=== PATIENT | female | born 1935 | race Caucasian/White ===

== ENCOUNTER 2022-11-15 14:57 | Outpatient (REF) | payer MEDICARE, OTHER, SELFPAY ==
[2022-11-15 16:15] LABS: Anion Gap 15 (12-20); Blood Urea Nitrogen 24 mg/dL (9-16); Calcium 10.2 mg/dL (8.4-10.2); Carbon Dioxide 24 mmol/L (22-29); Chloride 108 mmol/L (96-108); Estimated Glomerular Filt Rate > 60; Glucose Random 84 mg/dL (60-115); Potassium 4.3 mmol/L (3.3-5.1); Sodium 143 mmol/L (135-145)
[2022-11-15 16:46] LABS: Folate 19.3 ng/mL (> or = 4.0); T4 Thyroxine 7.4 ug/dL (4.5-12.0); Vitamin B12 367 pg/mL (200-900)
== END 2022-11-15 14:58 | disposition home or self-care (01) ==
LOC: HO.LAB 14:57
PROVIDERS: Visit Provider Psychiatry & Neurology Neurology
DX: G31.84 Mild cognitive impairment of uncertain or unknown etiology (principal)
CPT/HCPCS: 36415; 80048; 82607; 82746; 84436; 84443

== ENCOUNTER 2022-12-09 12:28 | Outpatient (REF) | payer MEDICARE, OTHER, SELFPAY ==
--- NOTE | ~2022-12-09 | CT_ITS ---
EXAMINATION: CT HEAD WITHOUT CONTRAST CLINICAL INFORMATION: Mild cognitive impairment COMPARISON: None available. TECHNIQUE: Contiguous axial imaging was performed from the skull base to vertex without intravenous administration of contrast. This CT examination was performed using dose optimization techniques as appropriate, variously including the following: *Automated exposure control *Adjustment of mA and/or kV according to patient size (this includes techniques or standardized protocols for targeted exams where dose is matched to indication/reason for exam; i.e. extremities or head) *Use of iterative reconstruction technique DLP: 625 mGy-cm FINDINGS: There is no acute intra-axial, extra-axial bleed, masses or midline shift. There is no acute infarction evolution. There is no edema. There is moderate diffuse periventrical hypodensities in both cerebral hemispheres without mass effect suggestive of chronic small vessel ischemic changes. No abnormality seen in the posterior fossa. Bone windows reveal no calvarial abnormality. There is no scalp soft tissue abnormality. Bilateral paranasal sinuses are well-aerated with complete opacification of right sphenoid sinus and minimal mucoperiosteal thickening, right middle ethmoid sinus. The mastoid sinuses are clear. CT/CT head/brain wo IV con IMPRESSION: 1. No acute intracranial process seen. 2. 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
== END 2022-12-09 12:29 | disposition home or self-care (01) ==
LOC: HO.CT 12:28
PROVIDERS: Visit Provider Psychiatry & Neurology Neurology
DX: G31.84 Mild cognitive impairment of uncertain or unknown etiology (principal)
CPT/HCPCS: 70450

== ENCOUNTER 2025-05-08 14:14 | Outpatient (AMB) | payer MEDICARE, OTHER, SELFPAY ==
--- NOTE | 2025-05-08 14:18 | MHC.OFFVIS ---
Intake Visit Reasons: f/u Accompanied by: Family/Other Allergies sulfur dioxide Allergy (Unknown, Verified 05/08/25 14:23) Unknown Medication List - Last Reconciled 05/08/25 by Elda Cisneros CNP aspirin 81 mg PO DAILY atorvastatin (Lipitor) 10 mg PO QPM candesartan 16 mg PO BID donepezil 10 mg PO DAILY melatonin 10 mg PO BEDTIME PRN metformin 500 mg PO DAILY nifedipine ER 90 mg PO DAILY vibegron (Gemtesa) 75 mg PO DAILY HPI Comments Details: She was doing okay. Memory was stable. She was functioning well at her place of residence and was participating in few group activities. Walking with walker, no falls. Mood was okay, but could be down at times when thinking of her who passed earlier this year. Sleep was not so good. Her daughter had concerns about her memory. The patient herself did not feel that that there was anything going out outside of her age that she was sometimes a bit forgetful about things. She does not feel that her quality of life had been affected in any way. [facility] Medical History (Updated 05/08/25 @ 14:22 by Elda Cisneros CNP) Diabetes mellitus Hypertension MCI (mild cognitive impairment) Review of Systems Const Denies chills, Denies daytime sleepiness, Reports difficulty sleeping, Denies fatigue, Denies fever(s), Denies frequent falls, Denies headache(s), Denies increased appetite, Denies poor appetite, Denies snoring, Denies weakness, Denies weight gain and Denies weight loss Eyes Denies loss of vision ENT Denies vertigo, Denies dizziness, Denies headache(s) and Denies neck pain Card Denies chest pain at rest, Denies chest pain with activity, Denies syncope, Denies leg edema, Denies palpitations, Denies dyspnea and Denies dyspnea on exertion Resp Denies cough, Denies dyspnea, Denies dyspnea on exertion and Denies snoring GI Denies abdominal pain, Denies constipation, Denies heartburn, Denies diarrhea and Denies nausea Denies urinary frequency, Denies urinary incontinence and Denies urinary urgency Musc Denies abnormal gait, Denies back pain, Denies myalgias, Denies arthralgias, Denies neck pain, Denies numbness and Denies tingling Neuro Denies abnormal gait, Denies vertigo, Denies dizziness, Denies syncope, Denies frequent falls, Denies headache(s), Denies lack of coordination, Denies loss of vision, Reports memory loss, Denies numbness, Denies Other visual disturbances, Denies restless legs, Denies seizure-like activity, Denies tingling, Denies paresthesias, Denies tremor(s) and Denies weakness Psych Denies anxiety, Denies depression, Denies auditory hallucinations, Reports memory loss and Denies visual hallucinations Endo Denies fatigue and Denies palpitations Physical Exam Const Other: General Appearance:? normal, in no acute distress. Heart:? S1, S2 normal, no murmurs. Lungs:? clear anteriorly and posteriorly. Musculoskeletal:? normal. Extremities:? no edema. Psych:? alert, as below. Neuro Other: Abnormal Neurological Findings:?MMSE 24/30. Very hard of hearing. Walking with walker.? Mental Status: alert, as below. Cranial Nerves: Pupils are equal, round, and reactive to light. External ocular muscles are intact. Visual wiseman are full, no ptosis. Face is symmetrical, no facial weakness or droop. Facial sensations are normal. Tongue protrudes in midline. Palate elevates symmetrically. Shoulder shrugging is normal Motor Examination: Normal muscle tone, bulk and strength. No atrophy or fasciculations. No drift of the extended upper extremities. DTR 2+. Plantars are flexor. Sensory Exam: Normal light touch, temperature, pinprick, vibration, and joint-position sensations. Rhomberg sign is absent. Coordination: No ataxia. No titubation. Gait Exam: With walker. Cerebellar Signs: [id number] is okay. Extrapyramidal System: No tremor, rigidity with normal facial expressions. No bradykinesia. No bradyphrenia. Normal arm swing and posture. No propulsion or retropulsion. Speech: Normal. MMSE Level of Consciousness: Alert. Orientation: Knows correct year, month, day, and season. Does not know date. Knows correct city, county and state. Knows correct location and floor. Registration: Able to register 3 objects. Attention: Serial 7's performed accurately to 93. Recall: Able to recall 3 out of 3 objects. Language: Normal spontaneous speech, fluency, repetition, naming, comprehension, reading, and writing. Total Score: 25/30. Results Reviewed Results Reviewed: 2022 EEG- WNL CT brain negative Labs normal. Assessment & Plan Assessment & Plan (1) MCI (mild cognitive impairment): Code(s): G31.84 - Mild cognitive impairment of uncertain or unknown etiology Category: Medical Plan: Continue donepezil 10mg 1 tablet at bedtime. Stay physically and socially active, use walker. Coding Level of Care Code Est Pt Level 4 (49543) Diagnoses MCI (mild cognitive impairment) G31.84
--- OUTSIDE RECORDS SUMMARY | 2025-05-08 15:14 | XMS_ITS ---
Author Name [facility] Organization Unknown History of Medication Use Medication Directions Dispensed Refills Start Date End Date Stat us acetaminophen (TYLENOL) 500 MG tablet Take 1 tablet (500 mg total) by mouth 4 times daily (every 6 hours) as needed for mild pain. active albuterol (PROVENTIL HFA; VENTOLIN HFA) 108 (90 Base) MCG/ACT inhaler Inhale 2 puffs 4 times daily (every 6 hours) as needed for wheezing. active atorvastatin (LIPITOR) 10 MG tablet Take 1 tablet (10 mg total) by mouth daily. active cetirizine (ZyrTEC) 10 MG tablet Take 1 tablet (10 mg total) by mouth daily. active metFORMIN (GLUCOPHAGE) 500 MG tablet Take 1 tablet (500 mg total) by mouth 2 (two) times a day with meals. 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
--- OUTSIDE RECORDS SUMMARY | 2025-05-08 15:14 | XMS_ITS | Clinical Summary ---
Author Organization [facility] Address [address] [place] [address] Care Team Providers Care Sales And Marketing Agent Name Role Phone Pcp, No Primary Care Provider Unavailabl e Allergies Active Allergy Reactions Criticality Noted Date Comments Metoprolol Delirium/Confusion/Psychosis Low 024 Sulfa Antibiotics Diarrhea Low 01/26/2024 Medications Aspirin 81 MG Cap Take 81 mg by mouth. 05/20/2023 Active candesartan (ATACAND) 16 MG tablet Take 1 tablet (16 mg total) by mouth. 05/20/2023 Active Gemtesa 75 MG tablet Take 1 tablet (75 mg total) by mouth daily. 12/09/2023 Active calcium carbonate-vitam in D (CALTRATE+D) 600 mg-10 mcg tablet Take 1 tablet by mouth every morning with breakfast. Active Multiple Vitamins-Minera ls (CENTRUM SILVER PO) Take by mouth. Active metFORMIN (GLUCOPHAGE) 500 MG tablet Take 1 tablet (500 mg total) by mouth 2 (two) times a day with meals. Active NIFEdipine (PROCARDIA XL) 90 MG 24 hr tablet Take 1 tablet (90 mg total) by mouth daily. Active acetaminophen (TYLENOL) 500 MG tablet Take 1 tablet (500 mg total) by mouth 4 times daily (every 6 hours) as needed for mild pain. Active fluticasone-morgan meterol 100-50 mcg/inh diskus inhaler Inhale 1 puff 2 (two) times a day. Active albuterol (PROVENTIL HFA; VENTOLIN HFA) 108 (90 Base) MCG/ACT inhaler Inhale 2 puffs 4 times daily (every 6 hours) as needed for wheezing. Active atorvastatin (LIPITOR) 10 MG tablet Take 1 tablet (10 mg total) by mouth daily. Active donepezil (ARICEPT) 5 MG tablet Take 1 tablet (5 mg total) by mouth nightly. Active cetirizine (ZyrTEC) 10 MG tablet Take 1 tablet (10 mg total) by mouth daily. Active melatonin 10 MG Tab tablet Take 10 mg by mouth nightly. Active Family History Medical History Relation Name Comments No Known Problems Daughter Heart disease Father Diabetes Mother No Known Problems Sister No Known Problems Son 1 No Known Problems Son 2 Relation Name Status Comments Daughter Alive Father Mother Sister Son 1 Alive Son 2 Alive Social History Tobacco Use Types Packs/Day Years Used Date Smoking Tobacco: Never Smokeless Tobacco: Never Alcohol Use Standard Drinks/Week Comments Yes 0 (1 standard drink = 0.6 oz pur e alcohol) socially Comments Unknown Sex and Gender Information Value Date Recorded Sex Assigned at Female 07/25/2023 9:52 AM EST Legal Sex Female 9:48 AM EST Gender Identity Female 07/25/2023 9:52 AM EST Sexual Orientation Choose not to disclose 2022 9:52 AM EST Last Filed Vital Signs Vital Sign Reading Time Taken Comments Blood Pressure 145/77 01/26/2024 11:00 AM EDT Pulse 89 01/26/2024 11:00 AM EDT Temperature 36.7 C (98 F) 01/26/2024 11:00 AM EDT Respiratory Rate - - Oxygen Saturation - - Inhaled Oxygen Concentration - - Weight 64.1 kg (141 lb 6.4 oz) 01/26/2024 11:00 AM EDT Height 155 cm (5' 1.02 ) 01/26/2024 11:00 AM EDT Body Mass Index 26.7 01/26/2024 11:00 AM EDT Plan of Treatment Health Maintenance Due Date Last Done Comments DTaP/Tdap/Td Vaccines (1 - Tdap) 1956 Pneumococcal Vaccines 50+ (1 of 1 - PCV) 1987 Zoster (Shingles) Vaccine (1 of 2) 1987 DXA Bone Density (Females,Ages 65 and older) 2002 RSV Vaccine 60 years and older and Patients (1 - 1-dose 75+ series) 2012 COVID-19 Vaccine (2023-2 5 season) 2024 01/28/2022, 10/13/2020, 09/22/2020 Influenza Vaccine 04/12/2025 Hepatitis B Vaccines Aged Out No long er eligible based on patient's age to complete this topic Insurance FOR [employer] MEDICARE PART A & B Care Teams Sales And Marketing Agent Relationship Specialty Start Date End Date Pcp, No PCP - General General Medicine 07/27/23
--- OUTSIDE RECORDS SUMMARY | 2025-05-08 15:14 | XMS_ITS | Encounter Summary ---
Author Organization [facility] Address [address] [place] [address] Care Team Providers Care Analysis Reporting Developer Name Role Phone Aisha Cross MD Primary Care Provider + Encounter Details Date Type Department Care Team (Late st Contact Info) Description 01/09/2025 Lab Requisition [facility] - Main Lab [address] [facility] [place] [address] Omayra Martin PA [address] [place], [place] [id number] Hyperlipidemia, unspecified; Type 2 diabetes mellitus without complications (CMS/HCC V24, CMS/HCC V28); Vitamin D deficiency, unspecified Social History Tobacco Use Types Packs/Day Years Used Date Smoking Tobacco: Never Assessed Comments Unknown Sex and Gender Information Value Date Recorded Sex Assigned at Not on file Legal Sex Female 9:55 PM EST Gender Identity Not on file Sexual Orientation Not on file documented as of this encounter Plan of Treatment Not on file documented as of this encounter Procedures Procedure Name Priority Date/Time Associated Diagnosis Comments LIPID PANEL WITH REFLEX TO DIRECT LDL Routine 01/09/2025 7:15 AM EDT Hyperlipidemia, unspecified Type 2 diabetes mellitus without complications (CMS/HCC V24, CMS/HCC V28) Vitamin D deficiency, unspecified CBC WITH AUTO DIFFERENTIAL Routine 01/09/2025 7:15 AM EDT Hyperlipidemia, unspecified Type 2 diabetes mellitus without complications (CMS/HCC V24, CMS/HCC V28) Vitamin D deficiency, unspecified VITAMIN D 25 HYDROXY Routine 01/09/2025 7:15 AM EDT Hyperlipidemia, unspecified Type 2 diabetes mellitus without complications (CMS/HCC V24, CMS/HCC V28) Vitamin D deficiency, unspecified CBC AND DIFFERENTIAL Routine 01/09/2025 7:15 AM EDT Hyperlipidemia, unspecified Type 2 diabetes mellitus without complications (CMS/HCC V24, CMS/HCC V28) Vitamin D deficiency, unspecified THYROID STIMULATING HORMONE Routine 01/09/2025 7:15 AM EDT Hyperlipidemia, unspecified Type 2 diabetes mellitus without complications (CMS/HCC V24, CMS/HCC V28) Vitamin D deficiency, unspecified MAGNESIUM Routine 01/09/2025 7:15 AM EDT Hyperlipidemia, unspecified Type 2 diabetes mellitus without complications (CMS/HCC V24, CMS/HCC V28) Vitamin D deficiency, unspecified LIPASE Routine 01/09/2025 7:15 AM EDT Hyperlipidemia, unspecified Type 2 diabetes mellitus without complications (CMS/HCC V24, CMS/HCC V28) Vitamin D deficiency, unspecified HEMOGLOBIN A1C Routine 01/09/2025 7:15 AM EDT Hyperlipidemia, unspecified Type 2 diabetes mellitus without complications (CMS/HCC V24, CMS/HCC V28) Vitamin D deficiency, unspecified VITAMIN B12 Routine 01/09/2025 7:15 AM EDT Hyperlipidemia, unspecified Type 2 diabetes mellitus without complications (CMS/HCC V24, CMS/HCC V28) Vitamin D deficiency, unspecified COMPREHENSIVE METABOLIC PANEL Routine 01/09/2025 7:15 AM EDT Hyperlipidemia, unspecified Type 2 diabetes mellitus without complications (CMS/HCC V24, CMS/HCC V28) Vitamin D deficiency, unspecified documented in this encounter Results * CBC auto differential (01/09/2025 7:15 AM EDT) [facility] Signature WBC 5.7 4.8 - 10.8 K/[facility] LAB HEMETOLOGY METHOD 01/09/2025 9:20 AM EDT [facility] RBC 4.30 3.80 - 4.80 M/mcL LAB HEMETOLOGY METHOD 01/09/2025 9:20 AM [facility] LAB Hemoglobin 12.6 11.5 - 16.0 g/dL LAB HEMETOLOGY METHOD 01/09/2025 9:20 AM [facility] LAB Hematocrit 38.6 35.0 - 47.0 % LAB HEMETOLOGY METHOD 01/09/2025 9:20 AM [facility] LAB MCV 89.1 79.0 - 98.0 FL LAB HEMETOLOGY METHOD 01/09/2025 9:20 AM [facility] LAB MCH 29.1 27.0 - 32.0 pcg LAB HEMETOLOGY METHOD 01/09/2025 9:20 AM [facility] LAB MCHC 32.6 32.0 - 37.0 g/dL LAB HEMETOLOGY METHOD 01/09/2025 9:20 AM [facility] LAB RDW 14.1 11.0 - 15.0 % LAB HEMETOLOGY METHOD 01/09/2025 9:20 AM [facility] LAB Platelets 387 130 - 400 K/mcL LAB HEMETOLOGY METHOD 01/09/2025 9:20 AM [facility] LAB MPV 10.7 7.0 - 11.0 FL LAB HEMETOLOGY METHOD 01/09/2025 9:20 AM [facility] LAB NRBC 0.0 <1.0 % LAB HEMETOLOGY METHOD 01/09/2025 9:20 AM [facility] LAB NRBC Absolute 0.00 <0.10 K/mcL LAB HEMETOLOGY METHOD 01/09/2025 9:20 AM [facility] LAB Neutrophils Relative 64.9 % LAB HEMETOLOGY METHOD 01/09/2025 9:20 AM [facility] LAB Lymphocytes Relative 18.4 % LAB HEMETOLOGY METHOD 01/09/2025 9:20 AM EDT [facility] Monocytes Relative 9.5 % LAB HEMETOLOGY METHOD 01/09/2025 9:20 AM T [facility] Eosinophils Relative 6.5 % LAB HEMETOLOGY METHOD 01/09/2025 9:20 AM [facility] LAB Basophils Relative 0.5 % LAB HEMETOLOGY METHOD 01/09/2025 9:20 AM [facility] LAB Immature Granulocytes Relative 0.2 % LAB HEMETOLOGY METHOD 01/09/2025 9:20 AM T [facility] Neutrophils Absolute 3.70 1.50 - 7.00 K/mcL LAB HEMETOLOGY METHOD 01/09/2025 9:20 AM [facility] LAB Lymphocytes Absolute 1.05 1.00 - 5.00 K/mcL LAB HEMETOLOGY METHOD 01/09/2025 9:20 AM [facility] LAB Monocytes Absolute 0.54 0.20 - 1.00 K/mcL LAB HEMETOLOGY METHOD 01/09/2025 9:20 AM [facility] LAB Eosinophils Absolute 0.37 0.00 - 0.50 K/mcL LAB HEMETOLOGY METHOD 01/09/2025 9:20 AM [facility] Basophils Absolute 0.03 0.00 - 0.20 K/mcL LAB HEMETOLOGY METHOD 01/09/2025 9:20 AM [facility] Immature Granulocytes Absolute 0.01 0.00 - 0.03 K/mcL LAB HEMETOLOGY METHOD 01/09/2025 9:20 AM [facility] Blood Venous blood specimen / Unknown Venipuncture / Unknown 01/09/2025 7:15 AM EDT 01/09/2025 8:36 AM EDT Omayra DOMÍNGUEZ LAB BLOOD ORDERABLES Final Result [facility] [address] [place] [address], * Vitamin D 25 hydroxy (01/09/2025 7:15 AM EDT) Vit D, 25-Hydroxy 37.9 30.0 - 80.0 ng/mL LAB CHEMISTRY METHOD 01/09/2025 11:31 AM EDT [facility] Blood Venous blood specimen / Unknown Venipuncture / Unknown 01/09/2025 7:15 AM EDT 01/09/2025 8:36 AM EDT Omayra DOMÍNGUEZ LAB BLOOD ORDERABLES Final Result Performing Organization Address [facility]/ZIP Co de Phone Number [facility] [address] [place] [address], * Thyroid stimulating hormone (01/09/2025 7:15 AM EDT) TSH 2.04 0.40 - 4.00 mcIU/mL LAB CHEMISTRY METHOD 01/09/2025 11:32 AM EDT [facility] Blood Venous blood specimen / Unknown Venipuncture / Unknown 01/09/2025 7:15 AM EDT 01/09/2025 8:36 AM EDT Omayra DOMÍNGUEZ LAB BLOOD ORDERABLES Final Result Performing Organization Address City/[facility]/ZIP Co de Phone Number [facility] [address] [place] [address], * Magnesium (01/09/2025 7:15 AM EDT) Magnesium 2.4 1.9 - 2.6 mg/dL LAB CHEMISTRY METHOD 01/09/2025 9:55 AM EDT [facility] Blood Venous blood specimen / Unknown Venipuncture / Unknown 01/09/2025 7:15 AM EDT 01/09/2025 8:36 AM EDT Omayra Nelly Mario DOMÍNGUEZ LAB BLOOD ORDERABLES Final Result Performing Organization Address [facility]/ZIP Co de Phone Number [facility] [address] [place] [address], [place] [phone] * Hemoglobin A1c (01/09/2025 7:15 AM EDT) Pathologist [facility] Hemoglobin A1C 6.1 <6.5 % LAB CHEMISTRY METHOD 01/09/2025 12:47 PM EDT [facility] Mean Bld Glu Estim. 128 mg/dL LAB CHEMISTRY METHOD 01/09/2025 12:47 PM EDT [facility] Blood Venous blood specimen / Unknown Venipuncture / Unknown 01/09/2025 7:15 AM EDT 01/09/2025 8:36 AM EDT Omayra DOMÍNGUEZ LAB BLOOD ORDERABLES Final Result Performing Organization Address [facility] Co de Phone Number [facility] [address] [place] [address], [place] [phone] * Vitamin B12 (01/09/2025 7:15 AM EDT) Pathologist [facility] Vitamin B-12 351 250 - 900 pcg/mL LAB CHEMISTRY METHOD 01/09/2025 10:19 AM EDT [facility] Blood Venous blood specimen / Unknown Venipuncture / Unknown 01/09/2025 7:15 AM EDT 01/09/2025 8:36 AM EDT Omayra DOMÍNGUEZ LAB BLOOD ORDERABLES Final Result [facility] [address] [place] [address], [place] [phone] * Lipase (01/09/2025 7:15 AM EDT) Pathologist [facility] Lipase 55 13 - 75 unit/L LAB CHEMISTRY METHOD 01/09/2025 9:55 AM T [facility] Blood Venous blood specimen / Unknown Venipuncture / Unknown 01/09/2025 7:15 AM EDT 01/09/2025 8:36 AM EDT Omayra DOMÍNGUEZ LAB BLOOD ORDERABLES Final Result [facility] [address] [place] [address], [place] [phone] * (ABNORMAL) Lipid panel with reflex to direct LDL (01/09/2025 7:15 AM EDT) [facility] Cholesterol 188 0 - 200 mg/dL LAB CHEMISTRY METHOD 01/09/2025 10:19 AM [facility] Triglycerides 156(H) 0 - 150 mg/dL LAB CHEMISTRY METHOD 01/09/2025 10:19 AM [facility] HDL 74 >=40 mg/dL LAB CHEMISTRY METHOD 01/09/2025 10:19 AM [facility] LDL Calculated 83 0 - 100 mg/dL LAB CHEMISTRY METHOD 01/09/2025 10:19 AM [facility] VLDL Cholesterol Ankur 31.2 mg/dL LAB CHEMISTRY METHOD 01/09/2025 10:19 AM [facility] Non HDL Chol. (LDL+VLDL) 114 <145 mg/dL LAB CHEMISTRY METHOD 01/09/2025 10:19 AM [facility] Chol/HDL Ratio 2.5 0.0 - 4.4 LAB CHEMISTRY METHOD 01/09/2025 10:19 AM [facility] Blood Venous blood specimen / Unknown Venipuncture / Unknown 01/09/2025 7:15 AM EDT 01/09/2025 8:36 AM EDT Omayra DOMÍNGUEZ LAB BLOOD ORDERABLES Final Result [facility] [address] [place] [address], * (ABNORMAL) Comprehensive metabolic panel (01/09/2025 7:15 AM EDT) Sodium 138 133 - 145 mmol/L LAB CHEMISTRY METHOD 01/09/2025 10:19 AM [facility] Potassium 4.5 3.5 - 5.5 mmol/L LAB CHEMISTRY METHOD 01/09/2025 10:19 AM [facility] Chloride 107 96 - 110 mmol/L LAB CHEMISTRY METHOD 01/09/2025 10:19 AM [facility] CO2 22 21 - 32 mmol/L LAB CHEMISTRY METHOD 01/09/2025 10:19 AM [facility] Anion Gap 9 3 - 11 LAB CHEMISTRY METHOD 01/09/2025 10:19 AM [facility] Glucose 96 70 - 100 mg/dL LAB CHEMISTRY METHOD 01/09/2025 10:19 AM [facility] BUN 26(H) 5 - 25 mg/dL LAB CHEMISTRY METHOD 01/09/2025 10:19 AM [facility] Creatinine 0.98 0.50 - 1.10 mg/dL LAB CHEMISTRY METHOD 01/09/2025 10:19 AM [facility] LAB eGFR 56(L) >=60 mL/min/1. 73m2 LAB CHEMISTRY METHOD 01/09/2025 10:19 AM [facility] LAB Comment:Calculation based on the Chronic Kidney Disease Epidemiology Collaboration (CKD-EPI) equation refit without adjustment for race. BUN/Creatinine Ratio 26.5 LAB CHEMISTRY METHOD 01/09/2025 10:19 AM [facility] Calcium 9.5 8.5 - 10.5 mg/dL LAB CHEMISTRY METHOD 01/09/2025 10:19 AM [facility] AST (SGOT) 18 10 - 42 unit/L LAB CHEMISTRY METHOD 01/09/2025 10:19 AM [facility] ALT (SGPT) 34 10 - 60 unit/L LAB CHEMISTRY METHOD 01/09/2025 10:19 AM [facility] Alkaline Phosphatase 99 42 - 121 unit/L LAB CHEMISTRY METHOD 01/09/2025 10:19 AM [facility] Total Protein 7.5 6.0 - 8.0 g/dL LAB CHEMISTRY METHOD 01/09/2025 10:19 AM [facility] Albumin 3.8 3.2 - 5.0 g/dL LAB CHEMISTRY METHOD 01/09/2025 10:19 AM [facility] Total Bilirubin 0.6 0.0 - 1.4 mg/dL LAB CHEMISTRY METHOD 01/09/2025 10:19 AM [facility] Blood Venous blood specimen / Unknown Venipuncture / Unknown 01/09/2025 7:15 AM EDT 01/09/2025 8:36 AM EDT us Omayra DOMÍNGUEZ LAB BLOOD ORDERABLES Final Result [facility] [address] [place] [address], documented in this encounter Visit Diagnoses Diagnosis Hyperlipidemia, unspecified Type 2 diabetes mellitus without complications (CMS/HCC V24, CMS/HCC V28) Vitamin D deficiency, unspecified documented in this encounter Care Teams Analysis Reporting Developer Relationship Specialty Start Date End Date Aisha Cross MD [address] [place] [id number] PCP - General Internal Medicine 01/09/25 documented as of this encounter
--- OUTSIDE RECORDS SUMMARY | 2025-05-08 15:14 | XMS_ITS | Clinical Summary ---
Author Organization [address] [facility] Address [address] [place] [address] Phone Care Team Providers Care Forgeman Helper Name Role Phone Asiha Cross MD Primary Care Provider + Social History Tobacco Use Types Packs/Day Years Used Date Smoking Tobacco: Never Assessed Comments Unknown Sex and Gender Information Value Date Recorded Sex Assigned at Not on file Legal Sex Female 9:55 PM EST Gender Identity Not on file Sexual Orientation Not on file Plan of Treatment Health Maintenance Due Date Last Done Comments DTaP,Tdap,and Td Vaccines (1 - Tdap) 1954 Pneumococcal Vaccine: 50+ Ye ars (1 of 2 - PCV) 1956 Zoster Vaccines (1 of 2) 1987 RSV Immunization Adult Patie nts (1 - 1-dose 75+ series) 2012 Falls Risk Assessment 08/14/2022 Medicare Annual Wellness Visit 08/14/2022 Osteoporosis Screening (Bone Density Screening) 08/14/2022 Social Influencers of Health Screening 08/14/2022 COVID-19 Vaccine ( - 2023-2 5 season) 2024 Depression Screening 09/12/2024 Influenza Vaccine (#1) 2025 Cholesterol Screening (Lipid Panel) 01/09/2030 01/09/2025 HIB Vaccines Aged Out No longer eligi ble based on patient's age to complete this topic HPV Vaccines Aged Out No longer eligi ble based on patient's age to complete this topic Hepatitis A Vaccines Aged Out No long er eligible based on patient's age to complete this topic Hepatitis B Vaccines Aged Out No long er eligible based on patient's age to complete this topic IPV Vaccines Aged Out No longer eligi ble based on patient's age to complete this topic MMR Vaccines Aged Out No longer eligi ble based on patient's age to complete this topic Meningococcal ACWY Vaccine Aged Out N o longer eligible based on patient's age to complete this topic Meningococcal B Vaccine Aged Out No l onger eligible based on patient's age to complete this topic RSV Immunization Patients Un leny 20 months Aged Out No longer eligible b ased on patient's age to complete this topic Varicella Vaccines Aged Out No longer eligible based on patient's age to complete this topic Procedures Procedure Name Priority Date/Time Associated Diagnosis Comments LIPID PANEL WITH REFLEX TO DIRECT LDL Routine 01/09/2025 7:15 AM EDT Hyperlipidemia, unspecified Type 2 diabetes mellitus without complications ([facility] V24, [facility] V28) Vitamin D deficiency, unspecified from Last 3 Months or Most Recently Relevant to Health Maintenance Results * (ABNORMAL) Lipid panel with reflex to direct LDL (01/09/2025 7:15 AM EDT) Cholesterol 188 0 - 200 mg/dL LAB CHEMISTRY METHOD 01/09/2025 10:19 AM [facility] Triglycerides 156(H) 0 - 150 mg/dL LAB CHEMISTRY METHOD 01/09/2025 10:19 AM [facility] HDL 74 >=40 mg/dL LAB CHEMISTRY METHOD 01/09/2025 10:19 AM [facility] LDL Calculated 83 0 - 100 mg/dL LAB CHEMISTRY METHOD 01/09/2025 10:19 AM [facility] VLDL Cholesterol Ankur 31.2 mg/dL LAB CHEMISTRY METHOD 01/09/2025 10:19 AM [facility] Non HDL Chol. (LDL+VLDL) 114 <145 mg/dL LAB CHEMISTRY METHOD 01/09/2025 10:19 AM [facility] Chol/HDL Ratio 2.5 0.0 - 4.4 LAB CHEMISTRY METHOD 01/09/2025 10:19 AM [facility] Blood Venous blood specimen / Unknown Venipuncture / Unknown 01/09/2025 7:15 AM EDT 01/09/2025 8:36 AM EDT us Omayra DOMÍNGUEZ LAB BLOOD ORDERABLES Final Result [facility] [address] [place] [address], from Last 3 Months or Most Recently Relevant to Health Maintenance Insurance MEDICARE Care Teams Forgeman Helper Relationship Specialty Start Date End Date Aisha Cross MD [address] [place] [phone] PCP - General Internal Medicine 01/09/25
--- OUTSIDE RECORDS SUMMARY | 2025-05-08 15:14 | XMS_ITS | Clinical Summary ---
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 Bilateral sensorineural hearing loss 01/10/2023 Immunizations Immunization Administration Dates Next Due COVID-19, mRNA (Pfizer Pre F all 2022) Monovalent, 30 mcg/0.3 ml 10/13/2020,09/22/2020 Covid-19, mRNA (Pfizer Pre F all 2022) Monovalent, 30 mcg/0.3 ml bharat-sucrose (12+) 01/28/2022 Social History Tobacco Use Types Packs/Day Years Used Date Smoking Tobacco: Never Assessed Comments Unknown Sex and Gender Information Value Date Recorded Sex Assigned at Not on file Legal Sex Female 4:03 PM EDT Gender Identity Not on file Sexual Orientation Not on file Plan of Treatment Health Maintenance Due Date Last Done Comments DTaP/Tdap/Td (1 - Tdap) 1955 Pneumococcal 50+ years (1 of 1 - PCV) 1987 Zoster (Shingrix) (1 of 2) 1987 Bone Density 2002 RSV (1 - 1-dose 75+ series) 2012 COVID-19 Vaccine (4 - 2023-2 5 season) 2024 01/28/2022, 10/13/2020, 09/22/2020 Influenza (#1) 2025 HPV Vaccine (No Doses Required) Completed Hep A Aged Out No longer eligi ble based on patient's age to complete this topic Hep B Aged Out No longer eligi ble based on patient's age to complete this topic Hib Aged Out No longer eligi ble based on patient's age to complete this topic Mammogram/Breast Imaging Discontinued Meningococcal ACWY Aged Out No longer eligible based on patient's age to complete this topic Pap Smear Discontinued Zoster (Zostavax) Discontinued Care Teams District Adviser Relationship Specialty Start Date End Date Lucho Eastman MD [address] [place] [address] PCP - General 04/18/23
== END 2025-05-08 14:37 | disposition home or self-care (01) ==
LOC: HO.HSM 14:15
PROVIDERS: PCP Internal Medicine; Referring Provider Internal Medicine; Visit Provider Registered Nurse
DX: G31.84 Mild cognitive impairment of uncertain or unknown etiology (principal)
CPT/HCPCS: 99214

== ENCOUNTER → 2025-05-08 14:14 | Outpatient (BNVA) | payer MEDICARE, OTHER, SELFPAY | PROVIDERS: PCP Internal Medicine; Referring Provider Internal Medicine; Visit Provider Registered Nurse | DX: G31.84 Mild cognitive impairment of uncertain or unknown etiology (principal) | CPT/HCPCS: 99212 ==